=== PATIENT | female | born 1960 | race Caucasian/White ===

== ENCOUNTER 2019-09-18 14:37 | Emergency (ER) | payer BC, OTHER ==
[2019-09-18 15:47] VITALS: BP 159/89
--- NOTE | 2019-09-18 16:35 | UC ---
Throat Pain/[place]al [place] HPI - HPI Summary HPI Summary: 59-year-old feel presenting with sore throat, nasal and chest congestion, and nonproductive cough 3 days. Patient states "head feels full." Denies ear pain. Denies shortness of breath and wheezing. Denies nausea or vomiting. Denies fever and chills. Denies body aches. Patient states she took Mucinex today without much relief. Denies concern for the flu. - History of Current Complaint Chief Complaint: UCRespiratory Stated Complaint: COUGH,THROAT COMPLAINT Hx Obtained From: Patient Onset/Duration: Gradual Onset, Lasting Days Pain Intensity: 3 Pain Scale Used: 0-10 Numeric - Allergies/Home Medications Allergies/Adverse Reactions: Allergies Allergy/AdvReac Type Severity Reaction Status Date / Time enviromental Allergy Unknown Unknown Uncoded 09/18/19 15:32 Reaction Details Home Medications: Home Medications Amoxicillin 500 mg PO PRN 09/18/19 [History] Dm/PE/Acetaminophen/Chlorphenr [Merary-Gering Plus Cold &] 1 cap PO PRN 09/18/19 [History] guaiFENesin ER TAB [Mucinex*] 600 mg PO BID PRN 09/18/19 [History Confirmed 11/06] PMH/Surg Hx/FS Hx/Imm Hx - Surgical History Surgical History: Yes Surgery Procedure, Year, and Place: UTERINE ABLATION. COLONOSCOPY - Family History Known Family History: Positive: Non-Contributory - Social History Alcohol Use: Occasionally Substance Use Type: None Smoking Status (MU): Never Smoked Tobacco Review of Systems All Other Systems Reviewed And Are Negative: Yes Constitutional: Positive: Negative. Negative: Fever, Chills, Fatigue ENT: Positive: Sore Throat, Sinus Congestion. Negative: Ear Ache, Nasal Discharge Respiratory: Positive: Cough - nonproductive. Negative: Shortness Of Breath Cardiovascular: Positive: Negative Gastrointestinal: Positive: Negative Musculoskeletal: Positive: Negative. Negative: Myalgia Neurological: Positive: Headache Physical Exam Triage Information Reviewed: Yes Appearance: Well-Appearing, No Pain Distress, Well-Nourished Vital Signs: Initial Vital Signs Temp 97.4 F 09/18/19 15:36 Pulse 73 09/18/19 15:36 Resp 18 09/18/19 15:36 BP 159/89 09/18/19 15:36 Pulse Ox 100 09/18/19 15:36 Lab Results 09/18/19 Range/Units 16:07 Group A Strep Rapid Negative (Negative) Vital Signs Reviewed: Yes Eyes: Positive: Conjunctiva Clear ENT: Positive: Hearing grossly normal, Pharyngeal erythema, Nasal congestion, Nasal drainage - PND, TMs normal, Uvula midline. Negative: Tonsillar swelling, Tonsillar exudate Neck exam: Normal Neck: Positive: Supple, Nontender, No Lymphadenopathy Respiratory Exam: Normal Respiratory: Positive: Lungs clear, Normal breath sounds, No respiratory distress, No accessory muscle use. Negative: Crackles, Rhonchi, Stridor, Wheezing Cardiovascular Exam: Normal Cardiovascular: Positive: RRR Neurological: Positive: Alert Psychological: Positive: Age Appropriate Behavior Skin Exam: Normal Throat Pain/Nasal Course/Dx - Course Course Of Treatment: Negative rapid strep. Discussed viral illness and symptomatic treatment with patient. Instructed to follow up with PCP if symptoms persist. All questions answered. Patient voiced understanding and agreed with treatment plan. - Differential Dx/Diagnosis Provider Diagnosis: Viral URI with cough Discharge ED - Sign-Out/Discharge Documenting (check all that apply): Patient Departure All imaging exams completed and their final reports reviewed: No Studies - Discharge Plan Condition: Stable Disposition: HOME Patient Education Materials: Upper Respiratory Infection (ED) Referrals: Najma Dillon MD [Primary Care Provider] - If Needed Additional Instructions: As discussed, your rapid strep test was negative today. Your symptoms are most likely caused by a virus and should resolve without treatment. You may continue with mucinex to reduce mucus production. You may also use nasal saline spray or Flonase and throat lozenges or throat sprays for symptomatic relief. You may take ibuprofen or tyelnol as directed for pain relief. Get plenty of rest and fluids. Follow up with your primary care doctor if your symptoms worsen or do not resolve within 7-10 days. - Billing Disposition and Condition Condition: STABLE Disposition: Home - Attestation Statements Provider Attestation: Patient not seen by me I was available for consult Chart reviewed MARY
== END 2019-09-18 16:56 | disposition home or self-care (01) ==
LOC: UCCORT 14:37
DX: J06.9 Acute upper respiratory infection, unspecified (principal); R05 Cough; Z91.09 Other allergy status, other than to drugs and biological substances
CPT/HCPCS: 87651; 99211; G0463

== ENCOUNTER 2019-11-14 08:58 | Emergency (ER) | payer BC, OTHER ==
[2019-11-14 09:36] VITALS: BP 147/77
[2019-11-14 10:09] LABS: Influenza A Molecular Negative (Negative); Influenza B Molecular Negative (Negative)
--- NOTE | 2019-11-14 10:15 | UC ---
FLU HPI - HPI Summary HPI Summary: 59 year old female with flu like illness. Sore throat and headache on and off for a week. Laryngitis and hoarseness. Headache and sinus congestion, cough. Coughing worse at night. Fatigue and body aches. - History of Current Complaint Chief Complaint: UCRespiratory Stated Complaint: SORE THROAT COUGH Time Seen by Provider: 11/14/19 10:02 Hx Obtained From: Patient Pain Intensity: 4 - Allergy/Home Medications Allergies/Adverse Reactions: Allergies Allergy/AdvReac Type Severity Reaction Status Date / Time enviromental Allergy Unknown Unknown Uncoded 11/14/19 09:29 Reaction Details Home Medications: Home Medications Cholecalciferol (Vitamin D3) [Vitamin D] 1,000 unit PO DAILY 05/18/15 [History Confirmed 09/18/19] Benzonatate 200 mg PO TID PRN #20 capsule 11/14/19 [Rx] Diphenhyd/Phenyleph/Acetaminop [Robitussin Cold-Flu Night Liq] PRN 11/14/19 [ History] Glucosamine/D3/Boswellia Maddy [Osteo Bi-Flex/5-Loxin Adv] 1 tab PO DAILY [History Confirmed 11/14/19] Guaifenesin/Pseudo 600/60(NF) [Mucinex D 600/60 (NF)] PRN 11/14/19 [History] Naproxen Sodium [Aleve] 220 mg PO PRN 11/14/19 [History] PMH/Surg Hx/FS Hx/Imm Hx Previously Healthy: Yes - OA - Surgical History Surgical History: Yes Surgery Procedure, Year, and Place: UTERINE ABLATION. COLONOSCOPY - Family History Known Family History: Positive: Non-Contributory - Social History Alcohol Use: Occasionally Substance Use Type: None Smoking Status (MU): Never Smoked Tobacco Review of Systems All Other Systems Reviewed And Are Negative: Yes Constitutional: Positive: Fever, Chills, Fatigue ENT: Positive: Ear Ache, Nasal Discharge Respiratory: Positive: Cough Musculoskeletal: Positive: Myalgia Neurological/Mental Status: Positive: Headache Is Patient Immunocompromised?: No Physical Exam Triage Information Reviewed: Yes Appearance: Well-Appearing, No Pain Distress, Well-Nourished Vital Signs: Initial Vital Signs Temp 98.2 F 11/14/19 09:31 Pulse 89 11/14/19 09:31 Resp 18 11/14/19 09:31 BP 147/77 11/14/19 09:31 Pulse Ox 98 11/14/19 09:31 Vital Signs Reviewed: Yes Eye Exam: Normal ENT Exam: Normal Neck exam: Normal Neck: Positive: 1 Respiratory Exam: Normal Cardiovascular Exam: Normal Musculoskeletal Exam: Normal Neurological Exam: Normal Psychological Exam: Normal Skin Exam: Normal Flu Course/Dx - Differential Dx/Diagnosis Differential Diagnosis/HQI/PQRI: Bronchitis, Broncholiolitis, Influenza, Pneumonia, RSV, Upper Respiratory Infection Provider Diagnosis: Viral respiratory illness Discharge ED - Sign-Out/Discharge Documenting (check all that apply): Patient Departure All imaging exams completed and their final reports reviewed: No Studies - Discharge Plan Condition: Good Disposition: HOME Prescriptions: Benzonatate 200 mg PO TID PRN #20 capsule PRN Reason: Cough Patient Education Materials: Viral Syndrome (ED) Referrals: Najma Dillon MD [Primary Care Provider] - 3 Days - Billing Disposition and Condition Condition: GOOD Disposition: Home
== END 2019-11-14 10:44 | disposition home or self-care (01) ==
LOC: UCCORT 08:58
DX: B34.9 Viral infection, unspecified (principal); H92.09 Otalgia, unspecified ear; M19.90 Unspecified osteoarthritis, unspecified site; R05 Cough; R53.83 Other fatigue; M79.10 Myalgia, unspecified site; R51 Headache; R09.89 Other specified symptoms and signs involving the circulatory and respiratory systems; Z91.09 Other allergy status, other than to drugs and biological substances
CPT/HCPCS: 99212; G0463